=== PATIENT | female | born 1985 | race Caucasian/White ===

== ENCOUNTER → 2018-06-30 12:25 | Outpatient (CLI) | payer BC, SELFPAY ==
--- NOTE | 2018-06-30 12:31 | US_ITS ---
STUDY: ULTRASOUND OF THE FEMALE PELVIS - COMPLETE REASON FOR EXAM: Female, 32 years old. , IUD, pain G3 and P3 LMP: 06/16/2018 TECHNIQUE: Transabdominal and Transvaginal TECHNICAL QUALITY: Adequate. COMPARISON: 03/11/2017 FINDINGS: The uterus is anteverted and is in a midline position. The uterus measures 9.5 x 5.5 x 4 cm. Normal uterine cervix. The endometrium measures 4 mm in thickness, and is hyperechoic. There is no demonstrated endometrial mass allowing for a small 2 mm calcification posteriorly. There is no demonstrated myometrial mass. There are 2 areas of distortion and tethering along the anterior lower uterine segment at the site of . I.U.D. - The patient does have an I.U.D. along the lower uterine segment with the superior aspect of the IUD directed to the anterior superior scar seen to a similar degree on previous exam. The crossbar is not visualized. The right ovary is visualized. The right ovary measures 2.6 x 3.3 x 2.5 cm. There is a periovarian septated 1.7 x 1.6 x 1.3 cm right ovarian cyst. There is no visualized right adnexal mass or complex lesion. There is normal arterial and normal venous vascularity. The left ovary is visualized. The left ovary measures 2.7 x 2.1 x 1.4 cm. There is no left ovarian cyst or ovarian mass. There is no visualized left adnexal mass or complex lesion. There is normal arterial and normal venous vascularity. There is minimal fluid along the uterine fundus. The pre void volume of the bladder was 181 ml. The post void volume of the bladder was 0 ml. Polycystic ovary disease: No. US/Transvaginal Non- IMPRESSION: Presence of an intrauterine device along the lower uterine segment, with the superior intrauterine Device directed to the superior indentation along the anterior uterus felt to be a scar, seen to a similar degree on previous exam. No endometrial mass detected. Mild fluid along the uterine fundus. Right periovarian cyst. No adnexal masses, large pelvic fluid or ovarian torsion. Electronically Signed: Cassia Umana MD at 3:12 EST , Service support ,
--- NOTE | 2018-06-30 12:31 | US_ITS ---
STUDY: ULTRASOUND OF THE FEMALE PELVIS - COMPLETE REASON FOR EXAM: Female, 32 years old. , IUD, pain G3 and P3 LMP: 06/16/2018 TECHNIQUE: Transabdominal and Transvaginal TECHNICAL QUALITY: Adequate. COMPARISON: 03/11/2017 FINDINGS: The uterus is anteverted and is in a midline position. The uterus measures 9.5 x 5.5 x 4 cm. Normal uterine cervix. The endometrium measures 4 mm in thickness, and is hyperechoic. There is no demonstrated endometrial mass allowing for a small 2 mm calcification posteriorly. There is no demonstrated myometrial mass. There are 2 areas of distortion and tethering along the anterior lower uterine segment at the site of . I.U.D. - The patient does have an I.U.D. along the lower uterine segment with the superior aspect of the IUD directed to the anterior superior scar seen to a similar degree on previous exam. The crossbar is not visualized. The right ovary is visualized. The right ovary measures 2.6 x 3.3 x 2.5 cm. There is a periovarian septated 1.7 x 1.6 x 1.3 cm right ovarian cyst. There is no visualized right adnexal mass or complex lesion. There is normal arterial and normal venous vascularity. The left ovary is visualized. The left ovary measures 2.7 x 2.1 x 1.4 cm. There is no left ovarian cyst or ovarian mass. There is no visualized left adnexal mass or complex lesion. There is normal arterial and normal venous vascularity. There is minimal fluid along the uterine fundus. The pre void volume of the bladder was 181 ml. The post void volume of the bladder was 0 ml. Polycystic ovary disease: No. US/Pelvic (Non ) IMPRESSION: Presence of an intrauterine device along the lower uterine segment, with the superior intrauterine Device directed to the superior indentation along the anterior uterus felt to be a scar, seen to a similar degree on previous exam. No endometrial mass detected. Mild fluid along the uterine fundus. Right periovarian cyst. No adnexal masses, large pelvic fluid or ovarian torsion. Electronically Signed: Cassia Umana MD at 3:12 EST , Service support ,
== END ==
PROVIDERS: Family Provider Family Medicine; PCP Family Medicine; Referring Provider Obstetrics & Gynecology; Visit Provider Obstetrics & Gynecology
DX: N93.9 Abnormal uterine and vaginal bleeding, unspecified (principal)
CPT/HCPCS: 76830; 76856; 93976

== ENCOUNTER → 2021-05-29 12:30 | Outpatient (CLI) | payer OTHER, SELFPAY ==
[2021-05-29 13:12] LABS: Cholesterol 176 mg/dL (200); Glucose 98 mg/dL (74-106); High Density Lipoprotein 49 mg/dL; Triglycerides 146 mg/dL; Very Low Density Lipoprotein 29 mg/dL (5-40)
[2021-05-29 13:34] LABS: HIV - WCH Non-Reactive (Nonreactive); Vitamin D,25 Hydroxy 80.1 ng/mL
[2021-05-30 19:07] LABS: HCV Quant. RNA PCR HCV Not Detected IU/mL (.)
[2021-05-30 19:11] LABS: HSV 2 IgG < 0.91 index (0.00-0.90)
[2021-06-01 00:07] LABS: Chlamydia By Nucleic Acid AMP Negative (Negative)
[2021-06-01 09:12] LABS: Gonococcus By Nucleic Acid AMP Negative (Negative)
[2021-06-01 17:32] LABS: HPV APTIMA, High Risk Negative (Negative)
== END ==
PROVIDERS: Referring Provider Obstetrics & Gynecology; Visit Provider Obstetrics & Gynecology
DX: Z01.411 Encounter for gynecological examination (general) (routine) with abnormal findings (principal); Z11.3 Encounter for screening for infections with a predominantly sexual mode of transmission
CPT/HCPCS: 36415; 80061; 82306; 82947; 86695; 86696; 86703; 87491; 87522; 87591; 87624; 88175; G0145

== ENCOUNTER → 2022-06-03 | Outpatient (CLI) | payer MEDICAID, SELFPAY ==
[2022-06-05 21:07] LABS: Chlamydia By Nucleic Acid AMP Negative (Negative)
[2022-06-06 17:45] LABS: Gonococcus By Nucleic Acid AMP Negative (Negative)
== END | disposition home or self-care (01) ==
PROVIDERS: Visit Provider Obstetrics & Gynecology
DX: Z11.3 Encounter for screening for infections with a predominantly sexual mode of transmission (principal); Z20.2 Contact with and (suspected) exposure to infections with a predominantly sexual mode of transmission
CPT/HCPCS: 87491; 87591

== ENCOUNTER → 2022-10-10 | Outpatient (CLI) | payer MEDICAID, SELFPAY ==
[2022-10-10 11:03] LABS: ALB/GLOB Ratio 0.9 RATIO (0.9-2.4); AST(SGOT) 20 U/L (15-37); Alanine Aminotransfer ALT/SGPT 33 U/L (13-56); Albumin, Serum 3.5 g/dL (3.2-5.0); Alkaline Phosphatase 77 U/L (45-117); Anion Gap 7 (5-15); BUN 10 mg/dL (7-18); BUN/Creat Ratio 15.7 RATIO (10-20); Calcium,Total 8.8 mg/dL (8.5-10.1); Chloride 103 mmol/L (98-107); Cholesterol 201 mg/dL (200); Creatinine, Serum 0.64 mg/dL (0.55-1.02); EST Glomerular Filtration Rate 113 mL/min (>60); Est Glom Filt Rate - Afr Amer 137 mL/min (>60); Globulin 4.1 g/dL (2.2-4.2); Glucose 89 mg/dL (74-106); High Density Lipoprotein 53 mg/dL; Potassium 3.8 mmol/L (3.5-5.1); Protein, Total 7.6 g/dL (6.4-8.2); Sodium Level 137 mmol/L (136-145); Thyroid Stim Hormone (TSH) 2.29 uIU/mL (0.358-3.74); Triglycerides 140 mg/dL; Very Low Density Lipoprotein 28 mg/dL (5-40)
[2022-10-10 11:18] LABS: HIV - WCH Non-Reactive (Nonreactive); Vitamin D,25 Hydroxy 33.8 ng/mL
[2022-10-11 20:07] LABS: HCV Quant. RNA PCR HCV Not Detected IU/mL (.)
[2022-10-11 22:06] LABS: HSV 2 IgG < 0.91 index (0.00-0.90)
== END | disposition home or self-care (01) ==
LOC: LAB 09:12
PROVIDERS: Visit Provider Obstetrics & Gynecology
DX: Z01.419 Encounter for gynecological examination (general) (routine) without abnormal findings (principal); Z13.21 Encounter for screening for nutritional disorder; Z13.220 Encounter for screening for lipoid disorders; Z20.2 Contact with and (suspected) exposure to infections with a predominantly sexual mode of transmission
CPT/HCPCS: 36415; 80053; 80061; 82306; 84443; 86695; 86696; 86703; 87522

== ENCOUNTER → 2024-06-18 | Outpatient (CLI) | payer MEDICAID, SELFPAY ==
[2024-06-18 12:27] LABS: Absolute Lymphocyte Count 3.11 X10^3/uL (0.83-4.51); Absolute Neutrophil Count 3.2 X10^3/uL (2.0-7.7); Basophil# 0.05 X10^3/uL; Basophil% 0.7 % (0-1); Eosinophil# 0.11 X10^3/uL; Eosinophils% 1.6 % (0-5); Hematocrit 41.7 % (37-47); Hemoglobin 13.2 g/dL (12.0-15.0); Lymphocyte # 3.11 X10^3/ul (0.83-4.51); Lymphocyte % 44.9 % (19-41); Mean Corp Hgb Conc 31.7 g/dL (32-36); Mean Corpuscular Hgb 27.5 pg (27.0-32.0); Mean Corpuscular Volume 86.9 fL (81-99); Mean Platelet Vol. 10.4 fl (6.2-12.0); Monocyte# 0.39 X10^3/uL; Monocyte% 5.6 % (0-10); NRBC Flagged by Analyzer 0 % (0-5); Neutrophil # 3.24 X10^3/uL (2.7-7.7); Neutrophil % 46.8 % (47-70); Platelet Count 286 K/mm3 (150-450); RBC Distribution Width CV 13.2 % (11.6-14.6); RBC Distribution Width SD 42.1 fl (35.1-43.9); White Blood Count 6.9 K/mm3 (4.4-11.0)
[2024-06-18 13:27] LABS: Hemoglobin A1c 5.4 % (3.8-5.6)
[2024-06-18 13:41] LABS: AST(SGOT) 15 U/L (15-37); Alanine Aminotransfer ALT/SGPT 31 U/L (13-56); Albumin, Serum 3.8 g/dL (3.2-5.0); Alkaline Phosphatase 76 U/L (45-117); Anion Gap 7 (5-15); BUN 7 mg/dL (7-18); BUN/Creat Ratio 11.3 RATIO (10-20); Calcium,Total 8.8 mg/dL (8.5-10.1); Chloride 107 mmol/L (98-107); Cholesterol 191 mg/dL (200); Creatinine, Serum 0.62 mg/dL (0.55-1.02); EST Glomerular Filtration Rate 115 mL/min (>60); Est Glom Filt Rate - Afr Amer 139 mL/min (>60); Globulin 3.8 g/dL (2.2-4.2); Glucose 88 mg/dL (74-106); High Density Lipoprotein 56 mg/dL; Potassium 3.8 mmol/L (3.5-5.1); Protein, Total 7.6 g/dL (6.4-8.2); Sodium Level 139 mmol/L (136-145); Triglycerides 119 mg/dL; Very Low Density Lipoprotein 24 mg/dL (5-40)
[2024-06-21 13:08] LABS: Vitamin D 1,25-Dihydroxy 53.6 pg/mL (24.8-81.5)
== END | disposition home or self-care (01) ==
LOC: BWCLAB 11:05
PROVIDERS: Referring Provider Obstetrics & Gynecology; Visit Provider Obstetrics & Gynecology
DX: N93.9 Abnormal uterine and vaginal bleeding, unspecified (principal)
CPT/HCPCS: 36415; 80053; 80061; 82652; 83036; 84443; 85025

== ENCOUNTER → 2025-06-20 | Outpatient (CLI) | payer MEDICAID, SELFPAY ==
[2025-06-20 12:16] LABS: Hematocrit 41.6 % (37-47); Hemoglobin 13.3 g/dL (12.0-15.0); Immature Granulocytes Count 0.050 X10^3/uL (0.0-0.0); Mean Corp Hgb Conc 32.0 g/dL (32-36); Mean Corpuscular Volume 86.8 fL (81-99); Mean Platelet Vol. 10.4 fl (6.2-12.0); NRBC Flagged by Analyzer 0 % (0-5); Platelet Count 273 K/mm3 (150-450); RBC Distribution Width CV 13.2 % (11.6-14.6); RBC Distribution Width SD 41.6 fl (35.1-43.9); Red Blood Count 4.79 M/mm3 (4.2-5.4); White Blood Count 8.1 K/mm3 (4.4-11.0)
[2025-06-20 13:56] LABS: AST(SGOT) 19 U/L (<=31); Alanine Aminotransfer ALT/SGPT 25 U/L (<=34); Albumin, Serum 4.3 g/dL (3.5-5.0); Alkaline Phosphatase 59 U/L (35-104); Anion Gap 10 (5-15); BUN 12 mg/dL (4-19); BUN/Creat Ratio 18.3 RATIO (10-20); Calcium,Total 9.2 mg/dL (7.6-11.0); Carbon Dioxide 25.0 mmol/L (21.0-32.0); Chloride 102 mmol/L (98-108); Cholesterol 182 mg/dL (<=200); Globulin 3.2 g/dL (2.2-4.2); Glucose 93 mg/dL (70-99); Low Density Lipoprotein Calc. 106 mg/dL; Potassium 4.2 mmol/L (3.3-5.1); Triglycerides 107 mg/dL; Very Low Density Lipoprotein 21 mg/dL (5-40); Vitamin D,25 Hydroxy 30.2 ng/mL (30-100); cholesterol:hdl ratio screen 3.21
== END | disposition home or self-care (01) ==
PROVIDERS: Visit Provider Obstetrics & Gynecology
DX: Z00.00 Encounter for general adult medical examination without abnormal findings (principal); Z13.1 Encounter for screening for diabetes mellitus; Z13.29 Encounter for screening for other suspected endocrine disorder; Z13.220 Encounter for screening for lipoid disorders; Z13.21 Encounter for screening for nutritional disorder
CPT/HCPCS: 36415; 80053; 80061; 82306; 83036; 84443; 85025